=== PATIENT | male | born 1970 | race Two or more races ===

== ENCOUNTER → 2016-04-05 | Outpatient (CLI) | payer OTHER ==
--- NOTE | 2016-04-05 14:18 | ST Modified Barium Swallow ---
Recommendation - Recommendations Recommendations: 1) DIET: recommend continue current diet. 2) Follow-up with referring physician. 3) Follow-up with GI. SUMMARY: Safe and effective swallow observed. No penetration or aspiration seen during study. No oral or pharyngeal residuals observed. Pt noted to state several times during the study "I feel it sticking" and would point to neck, with no radiographic findings of residuals. Globus sensation possibly due to esophageal issues. Medical Diagnoses - Medical Diagnoses Medical Diagnosis Description & ICD-10 Code(s): r13.10 Other Medical Diagnoses/Co-Morbidities: Multiple surgeries requiring intubation , GERD, Depression. - ICD-10 Tx Diagnosis Coding (1) Dysphagia, unspecified ICD-10 Code(s): R13.10 - DYSPHAGIA, UNSPECIFIED ST Modified Barium Swallow - General Date: 04/05/16 Referring Physician: Dr. Graham Risks/Precautions: None Date of Onset: 04/05/14 Reason for Referral: dysphagia - History History obtained from: Patient -: Medical - Pt reports worsening swallowing difficulty over the past 2 years, pt states became worst in March. Pt reports took a pill which "got stuck" in his throat. States had "allegic reaction" and "threw up" dinner. Also states during event had trouble breathing and swallowing. Pt reports not eating breads or pasta due to hard to swallow. Endorses globus sensation in lower neck. Reports coughing and choking with every meal. Denies history of PNA, states had bronchitis in February 2015. Pt states food are hard to swallow and he feels them slowly moving down. Pt reports seen ENT, GI, and pulmonology. Pt reports GI states has reflux. States ENT reported inflammation indicating laryngopharyngeal reflux. Reports pulmonology requesting GI take biopsy. Medications: Zyrtec, Xyrem, Provigil, Nexium, Flonase, Welbutrin, lipitor, losartan, refresh tears. Allergies: tessalon, seasonal, reports possibly gluten allergy - Functional Status Prior Functional Status: INDEPENDENT: feeding Current Functional Limitations: feeding - Subjective Patient/caregiver goal(s): safe swallow Cognitive-Linguistic Function: WNL Speech Intelligibility: WNL Current Nutritional Means: PO Current PO diet: Regular Current symptoms: c/o Globus sensation Pain: 0/5 - Objective Assessment: Upright, Left Lateral - Food Trials Used Food trials used: Thin liquids, Pureed, Regular The patient: Was Able to Self Feed - Oral-Motor Skills Dentition: Full Velo-pharyngeal function: Unremarkable Laryngeal Function: Volitional Cough, Volitional Swallow - Assessment Oral prep: Normal Labial closure: Adequate Leakage: None Mastication: Adequate Lingual Movement: Normal Oral stage: Normal for this Procedure - Pharyngeal Stage Initiation of Pharyngeal Stage Reflex: Normal Decreased laryngeal elevation: No Reduced Velopharyngeal Closure: no Reduced pressure generation: No reduced tongue-based retraction: No Pre-swallow pooling in valleculae: None Pre-Swallow pooling in pyriforms: None Reduced Thyro-Hyoid approximation: No Reduced epiglottic excursion: No Reduced pharyngeal peristalsis/contraction: No Post-swallow residulas vallecular: Mild - trace observed on puree-pt observed to independently initiate second swallow clearing residuals- WFL Post-Swallow residuals in pyriforms: None - Fall Risk Assessment Medications/Conditions that increase fall risks include: Antidepressants, sedatives, anti-arrhythmic, diuretic, benzodiazipenes, neuroleptics. BP regulation problems, cardiac problems, balance or gait deficits, neurological problems. Is patient considered at risk for falls: no Fall Risk Actions Taken: No action needed - Behavioral Observations During evaluation process patient: was pleasant, was cooperative, able to answer questions, provided medical history - Treatment / Educational Needs: Treatment/Education Needs: Treatment consisted of patient education on the role of the Speech Pathologist. Patient's plan of care and golas were communicated as well as scheduling and attendance policies. Recommendations for initial home program were shared. Patient demonstrated understanding and verbalized agreement. - Impression/Summary Laryngeal Penetration: No Tracheal Aspiration: no Patient presents with: Normal swallow at eval - safe and effective swallow observed Risk of Aspiration: Minimal - Recommendations NPO: no Strict aspiration precautions: No Pt/Family education and followup with MD: Yes Dysphagia therapy with CIVIL [employer]ED[employer] TRAINING OFFICER: no Recommended techniques: Fully Upright During Meal Supervision: Independent Information, Precautions and Recommendations: Patient (Verbal) - Time Total Time: 25 - Plan of Care Strategies to optimize patient understanding include:: ongoing assessment of educational needs, implementation of educational strategies, and re-education. - - -: Thank you for the opportunity to work with this patient and his/her family. Should you have any questions about this patient's plan or progress, I can be reached at [phone]. Charge G Code? - - -: No
== END ==
LOC: RAD 07:20
PROVIDERS: ATTEND Otolaryngology
DX: R13.10 Dysphagia, unspecified (principal)
CPT/HCPCS: 74230